=== PATIENT | female | born 2000 | race Caucasian/White ===

== ENCOUNTER 2018-04-28 15:04 | Emergency (ER) | payer OTHER ==
[2018-04-28] MEDS: DEXAMETHASONE 10 MG/ML 1 ML INJ IM (17:03)
[2018-04-28] MEDS: AMOXICILLIN 500 MG CAP PO (17:03)
[2018-04-28] MEDS: ACETAMINOPHEN 325 MG TAB PO (17:03)
== END 2018-04-28 17:44 | disposition home or self-care (01) ==
LOC: FTE 15:04
DX: J02.9 Acute pharyngitis, unspecified (principal)
CPT/HCPCS: 96372; 99284-25